=== PATIENT | male | born 1980 | race Caucasian/White ===

== ENCOUNTER 2018-08-07 17:21 | Emergency (ER) | payer OTHER ==
[2018-08-07 17:26] VITALS: BP 120/75
--- NOTE | 2018-08-07 17:34 | EDPHY ---
H & P Time Seen by Provider: 08/07/18 17:30 HPI/ROS: CHIEF COMPLAINT: Right index finger laceration HISTORY OF PRESENT ILLNESS: 38-year-old male with up-to-date tetanus was washing glasses any sustained laceration to his right index finger middle phalanx ulnar aspect. No paresthesia. No sensory motor deficit. No foreign body sensation PHYSICAL EXAM (Prior to examination, patient consented to physical exam, hands were washed and my usual and customary physical exam procedures followed) 1) GENERAL: Well-developed, well-nourished, alert and oriented. Appears to be in no acute distress. 2) HEAD: Normocephalic 3) HEENT: sclera anicteric 4) LUNGS: Breathing comfortably. 5) SKIN: 1.5 cm flap laceration with viable flap tissue on the right index finger middle phalanx ulnar aspect. 6) MUSCULOSKELETAL: FDP FDS function intact. Extensor function intact 7) NEUROLOGIC: Two-point discrimination intact Smoking Status: Never smoked Constitutional: Initial Vital Signs Temperature (C) 36.7 C 08/07/18 17:23 Heart Rate 79 08/07/18 17:23 Respiratory Rate 16 08/07/18 17:23 Blood Pressure 120/75 08/07/18 17:23 O2 Sat (%) 97 08/07/18 17:23 O2 Delivery Mode Room Air Allergies/Adverse Reactions: amoxicillin [From Augmentin] Allergy (Verified 08/07/18 17:22) clavulanic acid [From Augmentin] Allergy (Verified 08/07/18 17:22) Home Medications: Medication Instructions Recorded NK [No Known Home Meds] 08/07/18 MDM/Departure - MDM Imaging Results: Imaging Impressions Finger X-Ray 08/07/18 17:33 Impression: No radiopaque foreign material identified. Images myself Procedures: Procedure: Laceration repair. I explained the indications, risks and benefits for both laceration repair and anesthetic administration. Verbal consent was obtained from the patient. The laceration on the right index finger was anesthetized using 0.5% bupivicaine without epinephrine digital nerve block. After anesthetic administered the patient was observed for a period of time and had no apparent adverse effects. The wound was cleaned, prepped, draped in normal sterile fashion and explored to its base. No foreign body seen, no foreign bodies palpated. There were no deep structures involved. No tendon injury was identified. The wound was repaired with 4 simple interrupted 5 O Prolene suture . The wound repair was simple. The procedure was performed by myself. Patient has been informed that scarring will occur, although efforts have been made to minimize this. ED Course/Re-evaluation: Care of patient under supervision of secondary supervising physician Dr Carroll . - Depart Disposition: Home, Routine, Self-Care Clinical Impression: Laceration of right index finger Qualifiers: Encounter type: initial encounter Damage to nail status: without damage Foreign body presence: without foreign body Qualified Code(s): S61.210A - Laceration without foreign body of right index finger without damage to nail, initial encounter Condition: Good Instructions: Care For Your Stitches (ED), Laceration (ED) Additional Instructions: Return to the ER if you develop redness, swelling, discharge, warmth to the wound, red streaks going up your arm, or any other symptoms that concern you. Referrals: Return, to the ER in 10 days for suture removal [Other] - 08/17/18
== END 2018-08-07 18:17 | disposition home or self-care (01) ==
PROC: 0HQFXZZ Repair Right Hand Skin, External Approach (ICD-10-PCS; principal; 2018-08-07)
DX: S61.210A Laceration without foreign body of right index finger without damage to nail, initial encounter (principal); W26.9XXA Contact with unspecified sharp object(s), initial encounter; Y92.9 Unspecified place or not applicable; Y93.9 Activity, unspecified; Y99.9 Unspecified external cause status